=== PATIENT | male | born 1990 | race Caucasian/White ===

== ENCOUNTER 2024-07-01 11:57 | Emergency (ER) | payer BC ==
[~2024-07-01] VITALS: Ht 180.3 cm; Wt 117.9 kg
[~2024-07-01 11:57] MED LIST: AMOXICILLIN500 MG PO; CIPROFLOXACN500 MG PO; METRONIDAZOLE500 MG PO
[2024-07-01 12:15] VITALS: BP 128/78
[2024-07-01 12:30] VITALS: BP 122/68
[2024-07-01 12:30] LABS: BASO% 0.5 % (0-3); EOS% 3.5 % (0-8); HEMATOCRIT 47.8 % (39.0-50.0); HEMOGLOBIN 16.4 g/dl (14.0-18.0); IMMATURE GRANULOCYTES 0.1 % (0.0-5.0); MEAN CELL VOLUME 86.3 fL CALC (80.0-100.0); MEAN CORPUSCULAR HGB 29.6 pG CALC (26.0-32.0); MEAN CORPUSCULAR HGB CONC 34.3 g/dL CAL (32.0-36.0); MONO% 5.4 % (2-13); NEUT# 4.88 thou/uL (1.82-7.42); NEUT% 61.5 % (42-76); RED BLOOD COUNT 5.54 mill/uL (4.70-6.10); RED CELL DISTRI WIDTH 11.8 % (11.5-15.5)
[2024-07-01 12:32] LABS: URINE BILIRUBIN - DIPSTICK Negative (NEGATIVE); URINE BLOOD DIPSTICK Negative (NEGATIVE); URINE GLUCOSE - DIPSTICK Negative (NEGATIVE); URINE KETONE Negative (NEGATIVE); URINE LEUK ESTERASE Negative (NEGATIVE); URINE NITRITE - DIPSTICK Negative (Negative); URINE PROTEIN - DIPSTICK Negative (NEG-TRACE); URINE UROBILINOGEN - DIPSTICK 0.2 E.U./dL (0.2)
[2024-07-01 12:33] LABS: URINE COLOR Yellow
[2024-07-01 12:42] LABS: ALBUMIN 4.6 g/dL (3.2-5.0); BILIRUBIN, TOTAL 0.7 mg/dL (0.2-1.3); CREATININE 0.8 mg/dL (0.7-1.3); TOTAL PROTEIN 7.4 g/dL (6.3-8.2)
[2024-07-01 12:44] LABS: POTASSIUM 4.4 mmol/l (3.5-5.1)
[2024-07-01 12:45] VITALS: BP 126/71
[2024-07-01] MEDS ORDERED: DICYCLOMINE HYD10 MG PO (14:19)
[2024-07-01 14:46] VITALS: BP 139/96
[2024-07-01 14:57] VITALS: BP 120/75
== END 2024-07-01 15:00 | disposition home or self-care (01) | DRG 392 ==
LOC: ED 11:57
PROVIDERS: Family Medicine
DX: R10.12 Left upper quadrant pain (principal); F17.200 Nicotine dependence, unspecified, uncomplicated
CPT/HCPCS: Q9967